=== PATIENT | female | born 1960 | race African-American/Black ===

== ENCOUNTER 2016-05-16 08:10 | Day surgery (SDC) | payer OTHER ==
[2016-05-16 08:38] VITALS: BMI 44.4
[2016-05-16] MEDS ORDERED: PROPOFOL 20 ML ONE ×3 (08:52)
[2016-05-16 09:32] VITALS: TEMP 97.6
[2016-05-16 14:27] VITALS: BP 121/73; PULSE 78
== END 2016-05-16 10:35 | disposition home or self-care (01) ==
LOC: JASU-ENDO 08:10
PROVIDERS: ATTEND Internal Medicine Gastroenterology
PROC: 0DJD8ZZ Inspection of Lower Intestinal Tract, Via Natural or Artificial Opening Endoscopic (ICD-10-PCS; principal; 2016-05-16 09:30)
DX: Z12.11 Encounter for screening for malignant neoplasm of colon (principal); Z86.010 Personal history of colon polyps

== ENCOUNTER 2020-12-15 09:41 | Emergency (ER) | payer OTHER ==
[2020-12-15 09:59] VITALS: BMI 28.4
[2020-12-15] MEDS ORDERED: SODIUM CHLORIDE 1,000 ML IV STA (10:52)
[2020-12-15] MEDS ORDERED: NYSTATIN 500,000 UNITS/5 ML SUSPENSION PO ONE (10:52)
[2020-12-15 11:26] LABS: PH,URINE 5.5 (5.0-8.0); URINE APPEARANCE CLEAR; URINE BILIRUBIN NEGATIVE (NEGATIVE); URINE COLOR YELLOW; URINE GLUCOSE (UA) 3+ (NEGATIVE); URINE KETONE 4+ (NEGATIVE); URINE LEUK ESTERASE NEGATIVE (NEGATIVE); URINE NITRITE NEGATIVE (NEGATIVE); URINE PROTEIN NEGATIVE (NEGATIVE); URINE UROBILINOGEN 0.2 mg/dL (0.2-1.0)
[2020-12-15 12:14] LABS: BASO % 0.7 % (0-2.0); HEMATOCRIT 41.4 % (32.4-45.2); HEMOGLOBIN 13.5 GM/dL (10.7-15.3); LYMPH % 12.6 % (8-40); MCHC 32.6 g/dl (32.0-36.0); MEAN CELL VOLUME 85.8 fl (80-96); MEAN PLT VOLUME 10.1 fl (7.5-11.1); MONO % 5.9 % (3.8-10.2); NEUT % 80.8 % (42.8-82.8); PLATELET COUNT 131 10^3/uL (134-434); RBC 4.82 M/mm3 (3.60-5.2); WHITE BLOOD COUNT 11.7 K/mm3 (4.0-10.0)
[2020-12-15 12:21] LABS: VENOUS BASE EXCESS -7.8 mmol/L (-2-2); VENOUS O2 SATURATION 92.8 % (70-80); VENOUS PCO2 32.6 mmHg (38-52); VENOUS PH 7.333 (7.310-7.410)
[2020-12-15 12:30] LABS: CHLORIDE 102 mmol/L (98-107); SODIUM 136 mmol/L (136-145)
[2020-12-15 12:33] LABS: ALBUMIN 3.2 g/dl (3.4-5.0); ANION GAP 13 MMOL/L (8-16); CALCIUM 8.7 mg/dL (8.5-10.1); CO2 20 mmol/L (21-32); GLUCOSE,RANDOM 399 mg/dL (74-106)
[2020-12-15 12:34] LABS: BLOOD UREA NITROGEN 10.9 mg/dL (7-18); LIPASE 105 U/L (73-393); MAGNESIUM 2.1 mg/dL (1.8-2.4)
[2020-12-15 12:36] LABS: CREATININE 0.9 mg/dL (0.55-1.3); SGOT/AST 8 U/L (15-37); SGPT/ALT 17 U/L (13-61)
[2020-12-15 12:37] LABS: BILIRUBIN,TOTAL 0.4 mg/dL (0.2-1); TOT PROT 6.3 g/dl (6.4-8.2)
[2020-12-15 12:39] LABS: ALK PHOS 181 U/L (45-117)
[2020-12-15] MEDS ORDERED: INSULIN REGULAR HUMAN 100 UNITS/ML *VIAL SQ ONE (13:16)
[2020-12-15] MEDS ORDERED: PT OWN MED DRAWER 7, Y5N ONE (13:37)
[2020-12-15 16:17] VITALS: BP 117/70; PULSE 98; TEMP 98.3
== END 2020-12-15 17:35 | disposition home or self-care (01) ==
LOC: JER 09:41
PROC: 3E0337Z Introduction of Electrolytic and Water Balance Substance into Peripheral Vein, Percutaneous Approach (ICD-10-PCS; principal; 2020-12-15)
PROC: 3E023GC Introduction of Other Therapeutic Substance into Muscle, Percutaneous Approach (ICD-10-PCS; principal; 2020-12-15)
DX: E11.65 Type 2 diabetes mellitus with hyperglycemia (principal); J01.30 Acute sphenoidal sinusitis, unspecified; B37.0 Candidal stomatitis
CPT/HCPCS: 36415; 70450-TC; 71045-TC-FY; 74176-TC; 80053; 81003; 82010; 82375; 82550; 82803; 82962; 83690; 83735; 84484; 85025; 87086; 87186; 93005; 93010; 99285-25